=== PATIENT | female | born 1990 | race Hispanic/Latino ===

== ENCOUNTER 2023-12-20 05:01 | Observation (INO) | payer OTHER, SELFPAY ==
[2023-12-20] MEDS ORDERED: Senokot S 8.6-50 MG TAB PO PRN (05:29)
[2023-12-20] MEDS ORDERED: Ondansetron PF 4 MG/2 ML Vial IVP PRN (05:29)
[2023-12-20] MEDS ORDERED: Acetaminophen 325 MG TAB PO PRN (05:29)
[2023-12-20] MEDS ORDERED: Calcium Carbonate 500 MG ChewTAB PO PRN (05:29)
[2023-12-20 05:49] VITALS: BMI 40.6
[2023-12-20] MEDS: Cyclobenzaprine 10 MG TAB PO SCH (05:59)
[2023-12-20] MEDS: DULoxetine 20 MG CAP PO SCH (06:00)
[2023-12-20] MEDS: Ketorolac Tromethamine 30 MG (1 mL) VIAL IVP SCH (06:00)
[2023-12-20] MEDS: Gabapentin 100 MG CAP PO SCH ×2 (09:03→10:36)
[2023-12-20] MEDS: Famotidine 20 MG TAB PO SCH (09:03)
[2023-12-20] MEDS: traMADol HCl 50 MG TAB PO PRN (09:04)
[2023-12-20] MEDS: Enoxaparin 40 MG (0.4 mL) SYRINGE SC SCH (09:05)
[2023-12-20 11:37] VITALS: BP 101/61; TEMP 97.3
[2023-12-20] MEDS ORDERED: Gabapentin 300 MG CAP PO SCH (15:00)
[2023-12-21] MEDS ORDERED: DULoxetine 20 MG CAP PO SCH (09:00)
== END 2023-12-20 12:26 | disposition home or self-care (01) ==
LOC: CSHTELE 05:01 → INTOOBSV 05:01
PROVIDERS: ADMIT Student in an Organized Health Care Education/Training Program; ATTEND Student in an Organized Health Care Education/Training Program
DX: R51.9 Headache, unspecified (principal); E66.9 Obesity, unspecified; R20.2 Paresthesia of skin; G35 Multiple sclerosis; Z90.89 Acquired absence of other organs; Z88.0 Allergy status to penicillin; Z79.899 Other long term (current) drug therapy; Z68.41 Body mass index [BMI] 40.0-44.9, adult
CPT/HCPCS: 96372; G0378; J1650; J1885